=== PATIENT | female | born 1975 | race African-American/Black ===

== ENCOUNTER 2017-03-30 10:47 | Emergency (ER) | payer OTHER ==
[2017-03-30 11:03] VITALS: BP 156/105; PULSE 81; RESP 16; TEMP 98.1; O2SAT 97
[2017-03-30] MEDS ORDERED: DEXAMETHASONE 4 MG TAB PO ONE (12:43)
[2017-03-30] MEDS ORDERED: AZITHROMYCIN 250 MG TAB PO ONE (12:43)
--- NOTE | 2017-03-30 12:46 | EDPHY ---
H & P Stated Complaint: URI/flu sxs and ST x 2days;exposed to illness at work Time Seen by Provider: 03/30/17 12:37 HPI/ROS: CHIEF COMPLAINT: Sore throat HISTORY OF PRESENT ILLNESS: The patient is a 41-year-old healthy female who comes to the emergency department complaining of a sore throat x3 days as well as body aches, sinus congestion. No cough. No shortness of breath. No chest pain she did have a flu vaccination this year. She states that she has missed last 3 days of work and needs a note. REVIEW OF SYSTEMS: Constitutional: denies: chills, fever, recent illness, recent injury EENTM: See HPI Respiratory: denies: cough, shortness of breath Cardiac: denies: chest pain, irregular heart rate, lightheadedness, palpitations Gastrointestinal/Abdominal: denies: abdominal pain, diarrhea, nausea, vomiting, blood streaked stools Genitourinary: denies: dysuria, frequency, hematuria, pain Musculoskeletal: denies: joint pain, muscle pain Skin: denies: lesions, rash, jaundice, bruising Neurological: denies: headache, numbness, paresthesia, tingling, dizziness, weakness Hematologic/Lymphatic: denies: blood clots, easy bleeding, easy bruising Immunologic/allergic: denies: HIV/AIDS, transplant EXAM: GENERAL: Well-appearing, well-nourished and in no acute distress. HEAD: Atraumatic, normocephalic. EYES: Pupils equal round and reactive to light, extraocular movements intact, sclera anicteric, conjunctiva are normal. ENT: TMs normal, oropharynx erythematous with white exudate, anterior cervical lymphadenopathy, sinus congestion . Moist mucous membranes. NECK: Normal range of motion, supple without lymphadenopathy or JVD. LUNGS: Breath sounds clear to auscultation bilaterally and equal. No wheezes rales or rhonchi. HEART: Regular rate and rhythm without murmurs, rubs or gallops. ABDOMEN: Soft, nontender, normoactive bowel sounds. No guarding, no rebound. No masses appreciated. BACK: No CVA tenderness, no spinal tenderness, step-offs or deformities EXTREMITIES: Normal range of motion, no pitting or edema. No clubbing or cyanosis. NEUROLOGICAL: Cranial nerves II through XII grossly intact. Normal speech, normal gait. 5/5 strength, normal movement in all extremities, normal sensation PSYCH: Normal mood, normal affect. SKIN: Warm, dry, normal turgor, no visible rashes or lesions. Source: Patient Exam Limitations: No limitations - Personal History Current Tetanus Diphtheria and Acellular Pertussis (TDAP): Yes - Medical/Surgical History Hx Asthma: No Hx Chronic Respiratory Disease: No Hx Diabetes: No Hx Cardiac Disease: No Hx Renal Disease: No Hx Cirrhosis: No Hx Alcoholism: No Hx HIV/AIDS: No Other PMH: tubal ligation - Family History Significant Family History: No pertinent family hx - Social History Smoking Status: Current every day smoker Alcohol Use: Sober Drug Use: None Constitutional: Initial Vital Signs Temperature (C) 36.7 C 03/30/17 10:50 Heart Rate 81 03/30/17 10:50 Respiratory Rate 16 03/30/17 10:50 Blood Pressure 156/105 H 03/30/17 10:50 O2 Sat (%) 97 03/30/17 10:50 O2 Delivery Mode Room Air Allergies/Adverse Reactions: No Known Allergies Allergy (Unverified 03/30/17 10:59) Home Medications: Medication Instructions Recorded Azithromycin [Zithromax] 250 mg PO DAILY #6 tab 03/30/17 Medical Decision Making ED Course/Re-evaluation: I will treat the patient with azithromycin and a dose of Decadron for pain. She will follow up with her regular physician. I stressed hydration and rest. She is happy with this plan and declines further workup or testing. Differential Diagnosis: Partial list of the Differential diagnosis considered include but were not limited to; pharyngitis, strep throat , sinusitis and although unlikely based on the history and physical exam, I also considered influenza, pneumonia, meningitis. I discussed these differential diagnoses and the plan with the patient as well as the usual and expected course. The patient understands that the diagnosis is provisional and that in medicine we are not always correct and that further workup is often warranted. Usual and customary warnings were given. All of the patient's questions were answered. The patient was instructed to return to the emergency department should the symptoms at all worsen or return, otherwise to followup with the physician as we discussed. - Data Points Medications Given: Discontinued Medications Azithromycin (Zithromax) 500 mg PO EDNOW ONE PRN Reason: Protocol Stop: 03/30/17 12:44 Last Admin: 03/30/17 13:00 Dose: 500 mg Dexamethasone (Decadron) 10 mg PO EDNOW ONE Stop: 03/30/17 12:44 Last Admin: 03/30/17 13:00 Dose: 10 mg Departure - Departure Disposition: Home, Routine, Self-Care Clinical Impression: Acute pharyngitis Qualifiers: Pharyngitis/tonsillitis etiology: unspecified etiology Qualified Code(s): J02.9 - Acute pharyngitis, unspecified Condition: Fair Instructions: Pharyngitis (ED) Referrals: NONE *PRIMARY CARE P,. [Primary Care Provider] - As per Instructions Antonio Woods MD [Medical Doctor] - As per Instructions Stand Alone Forms: Work Excuse Prescriptions: Azithromycin [Zithromax] 250 mg PO DAILY #6 tab
== END 2017-03-30 13:03 | disposition home or self-care (01) ==
DX: J02.9 Acute pharyngitis, unspecified (principal); F17.200 Nicotine dependence, unspecified, uncomplicated

== ENCOUNTER 2017-05-05 15:36 | Emergency (ER) | payer OTHER ==
[2017-05-05 15:51] VITALS: RESP 16; TEMP 98.4
--- NOTE | 2017-05-05 16:38 | EDPHY ---
General Narrative: CHIEF COMPLAINT: Right ear pain, yeast infection HISTORY OF PRESENT ILLNESS: Patient complains of right ear pain times several days. It is very painful to her. Worse with palpation and movement. Difficult for here the right ear because it. Associated with sore throat and nasal congestion. Some runny nose. No chest pain. No cough but no shortness of breath. No fever. No neck pain or stiffness. No headache. No body aches. Secondary complaint is that of yeast infection. She has symptoms consistent with previous yeast infections and possibly bacterial vaginosis. This involves vaginal pruritus and mild, white discharge. No pelvic pain no abdominal pain. No flank pain. No fever. No nausea or vomiting. She is asking for empiric coverage of these without any are testing. No other associated complaints or modifying factors. REVIEW OF SYSTEMS: Ten systems reviewed and are negative unless otherwise noted in the HPI PCP: None SPECIALISTS: None PAST MEDICAL HISTORY: None PAST SURGICAL HISTORY: Tubal ligation SOCIAL HISTORY: Daily smoker. No alcohol or drug use. FAMILY HISTORY: Noncontributory EXAMINATION General Appearance: Alert, no distress Head: normocephalic, atraumatic Eyes: Pupils equal and round, no conjunctival pallor or injection ENT, Mouth: Right ear cerumen impaction. Left ear is clear. Unable to visualize the right TM. No erythema of the mastoid per Mucous membranes moist. Airway is patent. There is no erythema. There is postnasal drip. Neck: Normal inspection, supple, non-tender midline trachea Respiratory: Lungs are clear to auscultation. No wheezing, rhonchi or crackles. Cardiovascular: Regular rate and rhythm. No murmur Gastrointestinal: Abdomen is soft and nondistended. Skin: Warm and dry, no rash. No petechiae or purpura. No cellulitis of the face or right mastoid Extremities: Nontender, no pedal edema. Symmetric range of motion Psychiatric: Mood and affect normal DIFFERENTIAL DIAGNOSES: Including but not limited to yeast infection, bacterial vaginosis, sexually transmitted infection, cerumen impaction, otitis externa, otitis media MDM: 4:25 p.m. Right ear cerumen impaction and symptoms consistent with bacterial vaginosis versus yeast infection. She has declined a pelvic examination. Unable to visualize the right TM so I attempted a cerumen impaction removal. She is not tolerating this. I will proceed with irrigation of the right EAC with deep rocks and re-evaluate. Attempting to obtain a crocodile forceps to re-attempt cerumen impaction. 4:50 p.m. Successful removal of cerumen impaction with crocodile forceps. After this I was able to visualize the TM. The TM is unremarkable but there is a moderate otitis externa. No perforated TM. Should be treated with ear drops for this. No indication for oral medication for this. She also be treated with Diflucan and Flagyl at her request with symptoms bacterial vaginosis yeast infection. She is declining pelvic exam. She has instructions to follow up with ENT and her primary care physician. I did send urinalysis samples for GC and Chlamydia. She will be contacted by charge nurse she these returned positive. Recommend smoking cessation as well. ED precautions discussed. She is comfortable this plan and discharged in stable condition. - History Smoking Status: Current every day smoker - Objective Vital Signs: Initial Vital Signs Temperature (C) 98.4 F 05/05/17 15:47 Heart Rate 76 05/05/17 15:47 Respiratory Rate 16 05/05/17 15:47 Blood Pressure 150/80 H 05/05/17 15:47 O2 Sat (%) 98 05/05/17 15:47 O2 Delivery Mode Room Air Allergies/Adverse Reactions: No Known Allergies Allergy (Unverified 03/30/17 10:59) Home Medications: Medication Instructions Recorded Acetaminophen/Codeine 300/30Mg 1 each PO Q6 PRN #7 tab 05/05/17 [Tylenol #3 (*)] Ciprofloxacin HCl/Dexameth 4 drop OT BID #1 btl 05/05/17 [Ciprodex Otic Suspension] Fluconazole [Diflucan (*)] 150 mg PO ONCE #2 tab 05/05/17 metroNIDAZOLE [Flagyl 500 mg (*)] 500 mg PO BID #20 tab 05/05/17 Departure - Departure Disposition: Home, Routine, Self-Care Clinical Impression: Right ear impacted cerumen, Bacterial vaginosis Otalgia Qualifiers: Laterality: right Qualified Code(s): H92.01 - Otalgia, right ear Otitis externa Qualifiers: Otitis externa type: unspecified type Chronicity: acute Laterality: right Qualified Code(s): H60.501 - Unspecified acute noninfective otitis externa, right ear Condition: Good Instructions: Bacterial Vaginosis (ED), Cerumen Impaction (ED), Earache (ED), Otitis Externa (ED) Additional Instructions: 1. Medications as prescribed to completion 2. follow up with ENT physician as discussed 3. Contact and Follow up with on-call primary care physician. Information provided 4. ED precautions as discussed Referrals: NONE *PRIMARY CARE P,. [Primary Care Provider] - As per Instructions Demond Centeno DO [Medical Doctor] - As per Instructions Love Courtney MD [Medical Doctor] - As per Instructions Prescriptions: Acetaminophen/Codeine 300/30Mg [Tylenol #3 (*)] 1 each PO Q6 PRN #7 tab PRN Reason: Pain, Mild Ciprofloxacin HCl/Dexameth [Ciprodex Otic Suspension] 4 drop OT BID #1 btl Fluconazole [Diflucan (*)] 150 mg PO ONCE #2 tab metroNIDAZOLE [Flagyl 500 mg (*)] 500 mg PO BID #20 tab
[2017-05-05] MEDS ORDERED: HYDROCODONE/APAP 5/325 TAB PO ONE (16:49)
[2017-05-05 17:11] VITALS: BP 134/74; PULSE 72; O2SAT 96
[2017-05-06 12:10] LABS: CHLAMYDIA AMPLIFICATION GENPRB NEGATIVE (NEGATIVE)
== END 2017-05-05 17:11 | disposition home or self-care (01) ==
PROC: F09Z3XZ Cerumen Management Treatment using Cerumen Management Equipment (ICD-10-PCS; principal; 2017-05-05)
DX: H61.21 Impacted cerumen, right ear (principal); N76.0 Acute vaginitis; H60.501 Unspecified acute noninfective otitis externa, right ear; F17.200 Nicotine dependence, unspecified, uncomplicated

== ENCOUNTER 2017-05-24 15:51 | Emergency (ER) | payer OTHER ==
[2017-05-24 16:13] VITALS: BP 136/108; PULSE 80; RESP 16; TEMP 98.6; O2SAT 95
--- NOTE | 2017-05-24 16:49 | EDPHY ---
H & P Time Seen by Provider: 05/24/17 16:44 HPI/ROS: CHIEF COMPLAINT: [ ] HISTORY OF PRESENT ILLNESS: [Need 4: Location, Duration, Severity, Quality, Context, Timing Modifying Factors, Associated S&S] REVIEW OF SYSTEMS: A comprehensive 10 point review of systems is otherwise negative aside from elements mentioned in the history of present illness. Source: Patient Exam Limitations: No limitations - Personal History LMP (Females 10-55): 15-21 Days Ago Current Tetanus/Diphtheria Vaccine: Yes - Medical/Surgical History Hx Asthma: No Hx Chronic Respiratory Disease: No Hx Diabetes: No Hx Cardiac Disease: No Hx Renal Disease: No Hx Cirrhosis: No Hx Alcoholism: No Hx HIV/AIDS: No Other PMH: tubal ligation - Social History Smoking Status: Former smoker - Physical Exam Exam: General Appearance: [Alert, no distress] Eyes: [Pupils equal and round no pallor or injection] ENT, Mouth: [Mucous membranes moist] Respiratory: [There are no retractions, lungs are clear to auscultation] Cardiovascular: [Regular rate and rhythm] Gastrointestinal: [Abdomen is soft and nontender, no masses, bowel sounds normal] Neurological: [A&O, normal motor function, normal sensory exam, normal cranial nerves] Skin: [Warm and dry, no rashes] Musculoskeletal: [Neck is supple nontender] Extremities: [symmetrical, full range of motion] Psychiatric: [Patient is oriented X 3, there is no agitation] Constitutional: Initial Vital Signs Temperature (C) 37 C 05/24/17 16:09 Heart Rate 80 05/24/17 16:09 Respiratory Rate 16 05/24/17 16:09 Blood Pressure 136/108 H 05/24/17 16:09 O2 Sat (%) 95 05/24/17 16:09 O2 Delivery Mode Room Air Allergies/Adverse Reactions: No Known Allergies Allergy (Verified 05/24/17 16:08) Home Medications: Medication Instructions Recorded NK [No Known Home Meds] 05/24/17 Departure - Departure Referrals: NONE *PRIMARY CARE P,. [Primary Care Provider] - As per Instructions
--- NOTE | 2017-05-24 16:55 | EDPHY ---
HPI/HX/ROS/PE/MDM Narrative: CHIEF COMPLAINT: Yeast infection HPI: The patient is a 42 y/o female complaining of a vaginal yeast infection for the last few days. She has a history of prior yeast infections and bacterial vaginosis and was last seen here in April for the same symptoms. She was prescribed Flagyl and Diflucan, which resolved the infection. She complains of the exact same symptoms today including vaginal pruritus and burning sensation. She is requesting medication treatment only and declines a pelvic exam. She denies dysuria, fever, chills. REVIEW OF SYSTEMS: Aside from elements discussed in the HPI, a comprehensive 10-point review of systems was reviewed and is negative. PMH: Tubal ligation, vaginitis SOCIAL HISTORY: Employed. Smoker. Lives in [place]. PHYSICAL EXAM: General:Patient is alert, in no acute distress. ENT:Eyes are normal to inspection. ENT inspection normal. Neck: Normal inspection. Full range of motion. Respiratory:No respiratory distress. Breath sounds normal bilaterally. Cardiovascular: Regular rate and rhythm. Strong peripheral pulses. Normal cap refill. Abdomen:The abdomen is nontender to palpation. There are no peritoneal signs. Back: Normal to inspection. No tenderness to palpation. Skin: Normal color. No rash. Warm and dry. Extremities: Normal appearance. Full range of motion. Neuro: Oriented x3. Normal motor function. Normal sensory function. ED Course: This is a 42 y/o female who presents with symptoms consistent with vaginitis that she reports feel exactly the same as prior bacterial vaginosis and vaginal yeast infection. She is declining pelvic exam or further work up for this and is requesting medication only. I have prescribed Diflucan and Flagyl for her as these worked well in the past. I recommended following up with her OBGYN for unimproved or recurrent symptoms. Return precautions discussed. She is comfortable with this plan. General Time Seen by Provider: 05/24/17 16:44 Initial Vital Signs: Initial Vital Signs Temperature (C) 37 C 05/24/17 16:09 Heart Rate 80 05/24/17 16:09 Respiratory Rate 16 05/24/17 16:09 Blood Pressure 136/108 H 05/24/17 16:09 O2 Sat (%) 95 05/24/17 16:09 O2 Delivery Mode Room Air Allergies/Adverse Reactions: No Known Allergies Allergy (Verified 05/24/17 16:08) Home Medications: Medication Instructions Recorded Fluconazole [Diflucan (*)] 150 mg PO ONCE #1 tab 05/24/17 metroNIDAZOLE [Flagyl] 500 mg PO BID #14 tab 05/24/17 Departure - Departure Disposition: Home, Routine, Self-Care Clinical Impression: Vaginitis Qualifiers: Chronicity: chronic Qualified Code(s): N76.1 - Subacute and chronic vaginitis Condition: Good Instructions: Metronidazole (By mouth), Fluconazole (By mouth), Vaginitis (ED) Additional Instructions: 1. Take Diflucan and Flagyl as directed. Be sure to complete the entire prescription of each. 2. I recommend following up with an OBGYN for a full pelvic exam. You've been referred to Dr. Coffman for follow up. Referrals: Josey Coffman DO [Doctor of Osteopathy] - As per Instructions Prescriptions: Fluconazole [Diflucan (*)] 150 mg PO ONCE #1 tab metroNIDAZOLE [Flagyl] 500 mg PO BID #14 tab Report Scribed for: Cornell Mustafa Report Scribed by: Mague Berrios Date of Report: 05/24/17 Time of Report: 16:56 Physician Review and Approval Statement: Portions of this note were transcribed by an ED scribe. I personally performed the history, physical exam, and medical decision making; and confirm the accuracy of the information in the transcribed note.
== END 2017-05-24 17:04 | disposition home or self-care (01) ==
DX: N76.1 Subacute and chronic vaginitis (principal); F17.200 Nicotine dependence, unspecified, uncomplicated

== ENCOUNTER 2017-08-20 17:59 | Emergency (ER) | payer OTHER ==
--- NOTE | 2017-08-20 18:19 | EDPHY ---
H & P Source: Patient Exam Limitations: No limitations - Personal History LMP (Females 10-55): 8-14 Days Ago - Medical/Surgical History Hx Asthma: No Hx Chronic Respiratory Disease: No Hx Diabetes: No Hx Cardiac Disease: No Hx Renal Disease: No Hx Cirrhosis: No Hx Alcoholism: No Hx HIV/AIDS: No Other PMH: tubal ligation - Social History Smoking Status: Former smoker Time Seen by Provider: 08/20/17 18:18 HPI/ROS: HPI: This is a 42-year-old female who presents with Chief Complaint: Vaginal discharge Location: pelvic Quality: Discharge Duration: Weeks Signs and Symptoms: no fever, no nausea, no vomiting, no hematemesis, no blood in stool, no abdominal bloating, no diarrhea, no back pain, no urinary symptoms , no vaginal bleeding, no indigestion, no chest pain, no shortness of breath, no dyspareunia Timing: Daily Severity: [id number] Context: Patient has a history of bilateral tubal ligation, LMP 1-2 weeks ago, presents with complaints of brownish vaginal discharge that occurs daily for the last several weeks. Her last pelvic exam was approximately 1 year ago. She reports that she has a history of candidiasis and bacterial vaginosis but believes that this discharge is different from previous times. After further questioning she is requesting STD workup. Denies abdominal pain/back pain/ vaginal bleeding/pelvic pain/nausea/vomiting. Eating and drinking normally. Modifying Factors: None Comment: ROS: see HPI Constitutional: No fever, no chills, no weight loss Eyes: No blurred vision Respiratory: No shortness of breath, no cough Cardiovascular: No chest pain, no palpitations Gastrointestinal: No nausea, no vomiting, no diarrhea, no hematemesis, no blood in stool Genitourinary: No dysuria, no blood in urine Extremities: No myalgias, no edema Neurologic: No weakness, no numbness Skin: No rashes, no petechiae Hematologic: No bruising, no bleeding MEDICAL/SURGICAL/SOCIAL HISTORY: Medical history: Generally healthy. Does not take any regular medications. Surgical history: Bilateral tubal ligation Social history: Employed. CONSTITUTIONAL: awake and alert, no obvious distress HEENT: Atraumatic and normocephalic, PERRL, EOMI. Tympanic membranes clear. Oropharynx clear, no exudate and moist pink mucosa. Airway patent. No lymphadenopathy. No meningismus. Cardiovascular: Normal S1/S2, regular rate, regular rhythm, without murmur rub or gallop. PULMONARY/CHEST: Symmetrical and nontender. Clear to auscultation bilaterally. Good air movement. No accessory muscle usage. ABDOMEN: Soft, nondistended, nontender, no rebound, no guarding, no peritoneal signs, no masses or organomegaly. No CVAT. PELVIC: normal external genitalia, normal cervix, cervical os was closed, no cervical motion tenderness, no adnexal mass, white thick discharge, no bleeding. The exam was performed with a biomedical engineering professor. EXTREMITIES: 2/2 pulses, strength 5/5, no deformities, no clubbing, no cyanosis or edema. NEUROLOGICAL: no focal neuro deficits. GCS 15. SKIN: Warm and dry, no erythema. no rash. Good capillary refill. (Ritu Garvey) Constitutional: Initial Vital Signs Temperature (C) 36.7 C 08/20/17 18:18 Heart Rate 82 08/20/17 18:18 Respiratory Rate 18 08/20/17 18:18 Blood Pressure 150/101 H 08/20/17 18:18 O2 Sat (%) 97 08/20/17 18:18 O2 Delivery Mode Room Air Allergies/Adverse Reactions: codeine Allergy (Verified 08/20/17 18:18) Home Medications: Medication Instructions Recorded Fluconazole [Diflucan (*)] 150 mg PO ONCE #1 tab 05/24/17 metroNIDAZOLE [Flagyl] 500 mg PO BID #14 tab 05/24/17 metroNIDAZOLE [Metrogel-Vaginal] 70 gm VG HS 5 Days gel.w.appl 08/20/17 Medical Decision Making ED Course/Re-evaluation: The patient was evaluated and managed by the physician visual merchandising assistant. I have reviewed this chart and I agree with the findings and plan of care as documented , as indicated by my signature. I am the secondary supervising physician. ( Dacia Fitzpatrick) Urinalysis, urine , pelvic swabs ordered No signs of pelvic inflammatory disease/sepsis/UTI Given Rocephin and Zithromax for GC as send out clue cells positive: Metrogel vaginal Rx given This patient was seen under the supervision of my secondary supervising physician. I evaluated care for this patient independently. (Ritu Garvey) Differential Diagnosis: Differential diagnosis includes but is not limited to bacterial vaginosis, pelvic inflammatory disease, urinary tract infection, gonorrhea, chlamydia, Trichomonas. (Ritu Garvey) - Data Points Laboratory Results: 08/20/17 08/20/17 08/20/17 19:55 19:32 19:32 Urine Color Urine Appearance Urine pH Ur Specific Dexter Urine Protein Urine Ketones Urine Blood Urine Nitrate Urine Bilirubin Urine Urobilinogen Ur Leukocyte Esterase Urine Glucose Urine Test NEGATIVE Trichomonas (Wet Prep) 3+ EPITHELIAL CELLS Suzan species DNA Pending C.trachomatis RNA (TMA) Pending Gardnerella DNA Probe Pending N.gonorrhoeae RNA (TMA) Pending Trichomonas DNA Probe Pending 08/20/17 19:32 Urine Color YELLOW Urine Appearance CLEAR Urine pH 6.0 (5.0-7.5) Ur Specific Dexter 1.025 (1.002-1.030) Urine Protein NEGATIVE (NEGATIVE) Urine Ketones NEGATIVE (NEGATIVE) Urine Blood NEGATIVE (NEGATIVE) Urine Nitrate NEGATIVE (NEGATIVE) Urine Bilirubin NEGATIVE (NEGATIVE) Urine Urobilinogen NEGATIVE EU EU (0.2-1.0) Ur Leukocyte Esterase NEGATIVE (NEGATIVE) Urine Glucose NEGATIVE (NEGATIVE) Urine Test Trichomonas (Wet Prep) Suzan species DNA C.trachomatis RNA (TMA) Gardnerella DNA Probe N.gonorrhoeae RNA (TMA) Trichomonas DNA Probe Medications Given: Discontinued Medications Azithromycin (Zithromax) 1,000 mg PO EDNOW ONE PRN Reason: Protocol Stop: 08/20/17 19:56 Last Admin: 08/20/17 20:19 Dose: 1,000 mg Ceftriaxone Sodium (Rocephin Im Syringe) 250 mg IM EDNOW ONE PRN Reason: Protocol Stop: 08/20/17 19:59 Last Admin: 08/20/17 20:34 Dose: 250 mg Departure - Departure Disposition: Home, Routine, Self-Care Clinical Impression: Vaginal discharge, Candidiasis of vagina, Bacterial vaginosis Condition: Good Instructions: Vaginal Discharge (ED) Additional Instructions: Please make an appointment to see your OBGYN within the next 1-3 months. Once all your results have been obtained, you will be contacted by the ER if any of them are positive. You do not have a urinary tract infection. Please practice safe sex. Referrals: [facility],. [Clinic] - As per Instructions Prescriptions: metroNIDAZOLE [Metrogel-Vaginal] 70 gm VG HS 5 Days gel.w.appl
[2017-08-20] MEDS ORDERED: AZITHROMYCIN 250 MG TAB PO ONE (19:55)
[2017-08-20 20:55] VITALS: BP 152/101; PULSE 75; RESP 15; TEMP 98.2; O2SAT 95
[2017-08-22 15:05] LABS: GC AMPLIFICATION GENPROBE NEGATIVE (NEGATIVE)
== END 2017-08-20 20:55 | disposition home or self-care (01) ==
DX: N76.0 Acute vaginitis (principal); B37.3 Candidiasis of vulva and vagina; B96.89 Other specified bacterial agents as the cause of diseases classified elsewhere; Z87.891 Personal history of nicotine dependence
CPT/HCPCS: J0696

== ENCOUNTER 2017-09-20 19:10 | Emergency (ER) | payer SELFPAY ==
[2017-09-20 19:33] VITALS: RESP 16
--- NOTE | 2017-09-20 20:26 | EDPHY ---
H & P Time Seen by Provider: 09/20/17 20:08 HPI/ROS: CHIEF COMPLAINT: Left ankle injury HISTORY OF PRESENT ILLNESS: 42-year-old female presents to the emergency department with left ankle injury. The patient was at home yesterday and twisted her left ankle. She complains of isolated pain to the left ankle. She was initially able to bear weight and then especially last evening and this morning she was having difficulty bearing weight because of the pain and swelling. She denies any other injury or trauma. ROS: Denies numbness or tingling in her toes, pain in her left leg or left knee. Denies symptoms in the right lower extremity. Past Medical/Surgical History: Tubal ligation Social History: Smoking Status: Former smoker Physical Exam: On examination the patient has some swelling noted to the lateral aspect of the left ankle overlying lateral malleolus. Nontender to palpate over the medial malleolus. Patient has pain with palpation especially over the lateral aspect of the left ankle. There is no obvious ligament instability. Nontender to palpate in her left foot. There is no abrasions, ecchymosis. Limited dorsiflexion secondary to pain. Achilles tendon is intact. Her left calf is nontender. Left knee is nontender. Her gait is not tested due to pain. Constitutional: Initial Vital Signs Temperature (C) 37.2 C 09/20/17 19:31 Heart Rate 85 09/20/17 19:31 Respiratory Rate 16 09/20/17 19:31 Blood Pressure 135/87 H 09/20/17 19:31 O2 Sat (%) 95 09/20/17 19:31 O2 Delivery Mode Room Air Allergies/Adverse Reactions: codeine Allergy (Verified 08/20/17 18:18) Home Medications: Medication Instructions Recorded Fluconazole [Diflucan (*)] 150 mg PO ONCE #1 tab 05/24/17 metroNIDAZOLE [Flagyl] 500 mg PO BID #14 tab 05/24/17 metroNIDAZOLE [Metrogel-Vaginal] 70 gm VG HS 5 Days gel.w.appl 08/20/17 MDM/Departure - MDM Imaging Results: Imaging Impressions Ankle X-Ray 09/20/17 19:49 Impression: Moderate soft tissue swelling at the lateral malleolus without evidence of fracture. Imaging: I viewed and interpreted images myself Procedures: Patient was placed in a Clark boot and examined post application in good placement with normal V[employer]ERIN[employer] EPIDEMIOLOGIST. Medications Given: Discontinued Medications Ibuprofen (Motrin) 800 mg PO EDNOW ONE Stop: 09/20/17 20:37 Last Admin: 09/20/17 20:43 Dose: 800 mg ED Course/Re-evaluation: 42-year-old female presents emergency room left ankle injury. X-rays reveal fractures. She was placed in a Clark boot and given orthopedic referral. - Depart Disposition: Home, Routine, Self-Care Clinical Impression: Left ankle sprain Qualifiers: Encounter type: initial encounter Involved ligament of ankle: unspecified ligament Qualified Code(s): S93.402A - Sprain of unspecified ligament of left ankle, initial encounter Condition: Good Instructions: Ankle Sprain (ED) Additional Instructions: Clark boot for comfort and support. Weightbear as tolerated. Follow up with orthopedic surgeon in 1 week to recheck. Stand Alone Forms: Work Excuse Referrals: Byron Kahn MD [Medical Doctor] - 2-3 days, call for appt. (Orthopedic surgeon on-call)
[2017-09-20] MEDS ORDERED: IBUPROFEN 600 MG TAB PO ONE (20:35)
[2017-09-20] MEDS ORDERED: IBUPROFEN 800 MG TAB PO ONE ×2 (20:35→20:36)
[2017-09-20 21:06] VITALS: BP 131/87; PULSE 74; TEMP 98.4; O2SAT 97
== END 2017-09-20 21:06 | disposition home or self-care (01) ==
DX: S93.402A Sprain of unspecified ligament of left ankle, initial encounter (principal); Z87.891 Personal history of nicotine dependence; X58.XXXA Exposure to other specified factors, initial encounter; Y92.009 Unspecified place in unspecified non-institutional (private) residence as the place of occurrence of the external cause

== ENCOUNTER 2018-06-02 05:54 | Emergency (ER) | payer MEDICAID ==
--- NOTE | 2018-06-02 06:25 | EDPHY ---
H & P Stated Complaint: PAINFUL YEAST INFX UNDER GABRIELA BREAST X 2 WKS Time Seen by Provider: 06/02/18 06:25 HPI/ROS: HPI CHIEF COMPLAINT: [ ] HISTORY OF PRESENT ILLNESS: [Need 4: Location, Duration, Severity, Quality, Context, Timing Modifying Factors, Associated S&S] Past Medical History: Past Surgical History: Social History: Family History: ROS REVIEW OF SYSTEMS: 10 Systems were reviewed and negative with the exception of the elements mentioned in the history of present illness. Exam Constitutional triage nursing summary reviewed, vital signs reviewed, awake/ alert. Eyes normal conjunctivae and sclera, EOMI, PERRLA. HENT normal inspection, atraumatic, moist mucus membranes, no epistaxis, neck supple/ no meningismus, no raccoon eyes. Respiratory clear to auscultation bilaterally, normal breath sounds, no respiratory distress, no wheezing. Cardiovascular rate normal, regular rhythm, no murmur, no edema, distal pulses normal. Gastrointestinal soft, non-tender, no rebound, no guarding, normal bowel sounds, no distension, no pulsatile mass. Genitourinary no CVA tenderness. Musculoskeletal no midline vertebral tenderness, full range of motion, no calf swelling, no tenderness of extremities, no meningismus, good pulses, neurovascularly intact. Skin pink, warm, & dry, no rash, skin atraumatic. Neurologic awake, alert and oriented x 3, AAOx3, moves all 4 extremities equally, motor intact, sensory intact, CN II-XII intact, normal cerebellar, normal vision, normal speech. Psychiatric normal mood/affect. Heme/Lymph/Immune no lymphadenopathy. Differential Diagnosis: Medical Decision Making: Re-evaluation: Source: Patient - Personal History Current Tetanus Diphtheria and Acellular Pertussis (TDAP): Yes - Medical/Surgical History Hx Asthma: No Hx Chronic Respiratory Disease: No Hx Diabetes: No Hx Cardiac Disease: No Hx Renal Disease: No Hx Cirrhosis: No Hx Alcoholism: No Hx HIV/AIDS: No Hx Splenectomy or Spleen Trauma: No Other PMH: tubal ligation - Social History Smoking Status: Light smoker Constitutional: Initial Vital Signs Temperature (C) 37.0 C 06/02/18 06:12 Heart Rate 75 06/02/18 06:12 Respiratory Rate 16 06/02/18 06:12 Blood Pressure 161/90 H 06/02/18 06:12 O2 Sat (%) 98 06/02/18 06:12 O2 Delivery Mode Room Air Allergies/Adverse Reactions: codeine Allergy (Verified 08/20/17 18:18) Home Medications: Medication Instructions Recorded NK [No Known Home Meds] 06/02/18 Departure - Departure Referrals: NONE *PRIMARY CARE P,. [Primary Care Provider] - As per Instructions
[2018-06-02] MEDS ORDERED: FLUCONAZOLE 150 MG TAB ONE (08:29)
[2018-06-02] MEDS ORDERED: FLUCONAZOLE 150 MG TAB PO ONE (08:54)
--- NOTE | 2018-06-02 08:54 | EDPHY ---
H & P Time Seen by Provider: 06/02/18 06:25 HPI/ROS: HPI Yeast infection. 43-year-old female by private vehicle. This patient reports that she has had 1 week of vaginal irritation and a whitish discharge, consistent with her prior yeast infections. She is here for medication to treat this. She does have 1 sexual partner currently. She reports she has had more irritation after sexual intercourse. She has not had a fever. No back pain. Denies any vaginal bleeding. ROS: Constitutional: No fever, no chills. No weakness. Gastrointestinal: No abdominal pain, no vomiting, no diarrhea. Genitourinary: No hematuria. As above, no frequency with urination. As above. Musculoskeletal: No back pain. No neck pain. No myalgias or arthralgias. Skin: No rashes. Neurological: No headache. Past medical history: Tubal ligation. Social history: Nonsmoker. Here by herself. As above. No alcohol. Physical Exam: General Appearance: Alert, no distress. This patient is responding to questions appropriately and in full sentences. This patient appears well- hydrated and well-nourished. Eyes: Pupils equal and round no pallor or injection. No lid edema, erythema or injection. Respiratory: There are no retractions, lungs are clear to auscultation with good air movement bilaterally. Cardiovascular: Regular rate and rhythm. No murmur. Gastrointestinal: Abdomen is soft and nontender, no masses, bowel sounds normal. No focal tenderness at McBurney's point. No Milligan sign. Neurological: Motor sensory function is grossly intact. Cranial nerves are normal. Gait is normal. Skin: Warm and dry, no rashes. Musculoskeletal: Neck is supple and nontender. Extremities are symmetrical. All joints range without pain or impingement. Psychiatric: No agitation. No depression. Database: EKG: Imaging: Procedures: Emergency department course: Triage vital signs reviewed. She is moderately hypertensive. Vital signs are otherwise normal. She is afebrile. Urinalysis unremarkable. Urine negative. Patient's presentation is consistent with a yeast infection. She was given 150 mg of oral fluconazole. Plan will be to prescribe her another 2 doses to be taken 72 hr apart. Patient given a prescription for this medication. GC and chlamydia also ordered. Results should be back tomorrow. [facility] and will call in for these results tomorrow. She has been instructed to return if she has positive results for additional antibiotics. She understands her instructions. Return to emergency department precautions reviewed. All of her questions were answered. She was discharged in good condition. Differential Diagnosis: The differential diagnosis on this patient includes but is not limited to yeast infection. Urinary tract infection, STI unlikely. This represents a partial list of diagnoses considered. These considerations are based on history, physical exam, past history, reassessment and diagnostic testing. Smoking Status: Light smoker Constitutional: Initial Vital Signs Temperature (C) 37.0 C 06/02/18 06:12 Heart Rate 75 06/02/18 06:12 Respiratory Rate 16 06/02/18 06:12 Blood Pressure 161/90 H 06/02/18 06:12 O2 Sat (%) 98 06/02/18 06:12 O2 Delivery Mode Room Air Allergies/Adverse Reactions: codeine Allergy (Verified 08/20/17 18:18) Home Medications: Medication Instructions Recorded Fluconazole 150 mg PO DAILY #2 tablet 06/02/18 Medical Decision Making - Data Points Laboratory Results: 06/02/18 06/02/18 07:29 07:29 Urine Color YELLOW Urine Appearance CLEAR Urine pH 5.0 (5.0-7.5) Ur Specific [place] 1.027 (1.002-1.030) Urine Protein NEGATIVE (NEGATIVE) Urine Ketones NEGATIVE (NEGATIVE) Urine Blood NEGATIVE (NEGATIVE) Urine Nitrate NEGATIVE (NEGATIVE) Urine Bilirubin NEGATIVE (NEGATIVE) Urine Urobilinogen NEGATIVE EU EU (0.2-1.0) Ur Leukocyte Esterase NEGATIVE (NEGATIVE) Urine RBC 1-3 /hpf /hpf (0-3) Urine WBC 1-3 /hpf /hpf (0-3) Ur Epithelial Cells TRACE /lpf /lpf (NONE-1+) Urine Bacteria TRACE /hpf H /hpf (NONE SEEN) Urine Mucus 1+ /lpf /lpf (NONE-1+) Urine Glucose NEGATIVE (NEGATIVE) Urine Test NEGATIVE Medications Given: Discontinued Medications Fluconazole (Diflucan) 150 mg PO EDNOW ONE Stop: 06/02/18 08:55 Last Admin: 06/02/18 08:57 Dose: 150 mg Departure - Departure Disposition: Home, Routine, Self-Care Clinical Impression: Yeast infection Condition: Good Instructions: Vaginitis (ED), Yeast Infection (ED) Additional Instructions: Read and follow provided instructions. [facility] for re-evaluation. Call in for STI test results tomorrow as discussed. Return to the emergency department or see [facility] if there is a positive result. Take medication as prescribed. 2 more doses 72 hr apart. Return to the emergency department for worsening symptoms, fever, back pain, vomiting or other serious concerns. Referrals: NONE *PRIMARY CARE P,. [Primary Care Provider] - As per Instructions Prescriptions: Fluconazole 150 mg PO DAILY #2 tablet
[2018-06-02 09:15] VITALS: BP 112/85
[2018-06-05 12:41] LABS: GC AMPLIFICATION GENPROBE NEGATIVE (NEGATIVE)
== END 2018-06-02 09:14 | disposition home or self-care (01) ==
DX: B37.3 Candidiasis of vulva and vagina (principal)

== ENCOUNTER 2018-06-09 05:48 | Emergency (ER) | payer MEDICAID ==
[2018-06-09] MEDS ORDERED: metroNIDAZOLE 500 MG TAB PO ONE (06:05)
--- NOTE | 2018-06-09 06:06 | EDPHY ---
H & P Stated Complaint: vaginal infection abx not working Time Seen by Provider: 06/09/18 05:56 HPI/ROS: HPI The patient presents with ongoing vaginal discharge with itching for the last 1- 2 weeks. Patient was seen in the emergency department on June 02 for similar symptoms. She was treated with fluconazole for presumed vaginal yeast infection. She has taken several doses without any improvement in her symptoms. At that time she had testing for chlamydia and gonorrhea which was normal. She feels that she likely has bacterial vaginosis. She has had this before and says that her symptoms are identical. She is requesting a prescription for Flagyl. She does not have any abdominal or pelvic pain, fevers or vomiting. REVIEW OF SYSTEMS 10 systems were reviewed and negative with the exception of the elements mentioned in the history of present illness. PMHx: History of tubal ligation Soc Hx: New to the area, does not have a primary care doctor PHYSICAL General Appearance: Alert, no distress Respiratory: Breathing comfortably Neurological: A&O, moves all extremities Skin: Warm and dry, no rashes Psychiatric: Patient is oriented X 3, there is no agitation Source: Patient Exam Limitations: No limitations - Personal History LMP (Females 10-55): 22-28 Days Ago Current Tetanus/Diphtheria Vaccine: Yes Current Tetanus Diphtheria and Acellular Pertussis (TDAP): Yes - Medical/Surgical History Hx Asthma: No Hx Chronic Respiratory Disease: No Hx Diabetes: No Hx Cardiac Disease: No Hx Renal Disease: No Hx Cirrhosis: No Hx Alcoholism: No Hx HIV/AIDS: No Hx Splenectomy or Spleen Trauma: No Other PMH: tubal ligation, left foot surgery - Social History Smoking Status: Light smoker Constitutional: Initial Vital Signs Temperature (C) 37.0 C 06/09/18 05:50 Heart Rate 76 06/09/18 05:50 Respiratory Rate 16 06/09/18 05:50 Blood Pressure 142/86 H 06/09/18 05:50 O2 Sat (%) 97 06/09/18 05:50 O2 Delivery Mode Room Air Allergies/Adverse Reactions: codeine Allergy (Verified 06/09/18 05:53) Home Medications: Medication Instructions Recorded Fluconazole 150 mg PO DAILY #2 tablet 06/02/18 Metronidazole 500 mg PO BID 7 Days tablet 06/09/18 Medical Decision Making Differential Diagnosis: This is a 43-year-old female who presents from home with ongoing vaginal discharge in itching, on improved with fluconazole at home. She suspects bacterial vaginosis. She has negative gonorrhea and chlamydia testing from about 1 week ago. I will treat her presumptively for bacterial vaginosis. I have offered her a pelvic exam however she declines. I have given her follow- up information for [facility] as she does not have a primary care physician. - Data Points Medications Given: Discontinued Medications Metronidazole (Flagyl) 500 mg PO EDNOW ONE PRN Reason: Protocol Stop: 06/09/18 06:06 Last Admin: 06/09/18 06:08 Dose: 500 mg Departure - Departure Disposition: Home, Routine, Self-Care Clinical Impression: Bacterial vaginosis Condition: Good Instructions: Metronidazole (By mouth), Bacterial Vaginosis (ED) Additional Instructions: Please take the antibiotic as prescribed. You cannot drink alcohol when you are taking it. I have given you the information below for [facility] to establish a primary care doctor. Referrals: [facility],. [Clinic] - As per Instructions Prescriptions: Metronidazole 500 mg PO BID 7 Days tablet
[2018-06-09 06:26] VITALS: BP 134/78
== END 2018-06-09 06:26 | disposition home or self-care (01) ==
DX: N76.0 Acute vaginitis (principal); Z98.51 Tubal ligation status

== ENCOUNTER 2018-07-29 20:09 | Emergency (ER) | payer MEDICAID ==
--- NOTE | 2018-07-29 21:25 | EDPHY ---
H & P Stated Complaint: LOWER LEFT TOOTH ABSCESS Time Seen by Provider: 07/29/18 21:25 HPI/ROS: HPI CHIEF COMPLAINT: Left lower posterior dental pain. HISTORY OF PRESENT ILLNESS: 43-year-old female presents emergency room with left lower posterior molar dental pain. She has dental decay there. This tooth is given her problems in the past. She presents emergency room left lower posterior molar dental pain over the past 24-48 hours. Denies fever denies trouble swallowing. Has not seen a dentist. Past Medical History: Denies significant medical history Past Surgical History: Denies significant surgical history Social History: Does smoke tobacco. Denies illicit drugs or alcohol. Family History: Noncontributory ROS REVIEW OF SYSTEMS: 10 Systems were reviewed and negative with the exception of the elements mentioned in the history of present illness. Exam Constitutional triage nursing summary reviewed, vital signs reviewed, awake/ alert. Eyes normal conjunctivae and sclera, EOMI, PERRLA. HENT oropharynx: Left posterior gumline there is dental decay, eroded to the gumline. Mild tender palpation. No gumline abscess. No evidence of [employer] RPA no evidence of ANUG. moist mucus membranes, no epistaxis, neck supple/ no meningismus, no raccoon eyes. Respiratory clear to auscultation bilaterally, normal breath sounds, no respiratory distress, no wheezing. Cardiovascular rate normal, regular rhythm, no murmur, no edema, distal pulses normal. Gastrointestinal soft, non-tender, no rebound, no guarding, normal bowel sounds, no distension, no pulsatile mass. Genitourinary no CVA tenderness. Musculoskeletal no midline vertebral tenderness, full range of motion, no calf swelling, no tenderness of extremities, no meningismus, good pulses, neurovascularly intact. Skin pink, warm, & dry, no rash, skin atraumatic. Neurologic awake, alert and oriented x 3, AAOx3, moves all 4 extremities equally, motor intact, sensory intact, CN II-XII intact, normal cerebellar, normal vision, normal speech. Psychiatric normal mood/affect. Heme/Lymph/Immune no lymphadenopathy. Differential Diagnosis: Includes but is not limited to in a particular order dental decay, dental cavity, dental infection, apical abscess, pulpitis Medical Decision Making: Plan for this patient [place] for pain control here in emergency room. Augmentin. Recommend the patient follows up closely with dentistry. Additionally discussed return precautions with return emergency room if worsening pain, swelling, fever 2139: Plan for this patient prescription for Augmentin, as well as ibuprofen 800 mg. Do recommend she follows up closely with dentistry. Prescription provided for Augmentin and ibuprofen 800 mg. Have canceled her clindamycin prescription I think she would tolerate Augmentin better. PATIENT WAS GIVEN A PRESCRIPTION FOR AUGMENTIN WELL IBUPROFEN 800 MG. THE CLINDAMYCIN PRESCRIPTION WAS CANCELED I FEEL THAT SHE WOULD TOLERATE AUGMENTIN BETTER. RETURN PRECAUTIONS DISCUSSED WITH THE PATIENT. Source: Patient - Personal History LMP (Females 10-55): Now Current Tetanus/Diphtheria Vaccine: Yes Current Tetanus Diphtheria and Acellular Pertussis (TDAP): Yes - Medical/Surgical History Hx Asthma: No Hx Chronic Respiratory Disease: No Hx Diabetes: No Hx Cardiac Disease: No Hx Renal Disease: No Hx Cirrhosis: No Hx Alcoholism: No Hx HIV/AIDS: No Hx Splenectomy or Spleen Trauma: No Other PMH: tubal ligation, left foot surgery - Social History Smoking Status: Light smoker Constitutional: Initial Vital Signs Temperature (C) 36.9 C 07/29/18 20:27 Heart Rate 80 07/29/18 20:27 Respiratory Rate 18 07/29/18 20:27 Blood Pressure 160/98 H 07/29/18 20:27 O2 Sat (%) 98 07/29/18 20:27 O2 Delivery Mode Room Air Allergies/Adverse Reactions: codeine Allergy (Verified 07/29/18 20:29) Home Medications: Medication Instructions Recorded Fluconazole 150 mg PO DAILY #2 tablet 06/02/18 Metronidazole 500 mg PO BID 7 Days tablet 06/09/18 Amoxicillin/Clavulanate Pot 875 mg PO BID #14 tab 07/29/18 [Augmentin 875 MG TAB (*)] Clindamycin 150 mg PO Q8 #21 cap 07/29/18 Clindamycin HCl [Clindamycin] 300 mg PO TID #30 cap 07/29/18 Ibuprofen [Motrin (*)] 800 mg PO Q6-8PRN #10 tab 07/29/18 Medical Decision Making - Data Points Medications Given: Discontinued Medications Hydrocodone Bitart/Acetaminophen ([place] 5/325) 1 tab PO EDNOW ONE Stop: 07/29/18 21:30 Last Admin: 07/29/18 21:34 Dose: 1 tab Amoxicillin/Clavulanate Potassium (Augmentin 875mg) 875 mg PO EDNOW ONE PRN Reason: Protocol Stop: 07/29/18 21:38 Last Admin: 07/29/18 21:39 Dose: Not Given Clindamycin (Clindamycin) 300 mg PO EDNOW ONE PRN Reason: Protocol Stop: 07/29/18 21:30 Last Admin: 07/29/18 21:33 Dose: 300 mg Departure - Departure Disposition: Home, Routine, Self-Care Clinical Impression: Dental decay, Dental infection Instructions: Toothache (ED) Additional Instructions: 1. Antibiotics as prescribed 2. Follow-up with dentistry 3. Return emergency room if worsening symptoms Referrals: NONE *PRIMARY CARE P,. [Primary Care Provider] - As per Instructions [facility] [Outside] - As per Instructions [facility] [Outside] - As per Instructions [facility] [Outside] - As per Instructions Dental [facility] [Outside] - As per Instructions [facility] [Outside] - As per Instructions Prescriptions: Amoxicillin/Clavulanate Pot [Augmentin 875 MG TAB (*)] 875 mg PO BID #14 tab Clindamycin 150 mg PO Q8 #21 cap Clindamycin HCl [Clindamycin] 300 mg PO TID #30 cap Ibuprofen [Motrin (*)] 800 mg PO Q6-8PRN #10 tab
[2018-07-29] MEDS ORDERED: CLINDAMYCIN 150 MG CAP PO ONE (21:29)
[2018-07-29] MEDS ORDERED: HYDROCODONE/APAP 5/325 TAB PO ONE (21:29)
[2018-07-29] MEDS ORDERED: AMOXICILLIN/CLAVULANATE POT 875/125 MG TAB PO ONE (21:37)
[2018-07-29 21:46] VITALS: BP 159/70
== END 2018-07-29 21:46 | disposition home or self-care (01) ==
DX: K02.9 Dental caries, unspecified (principal); K04.7 Periapical abscess without sinus

== ENCOUNTER 2018-12-07 15:41 | Emergency (ER) | payer MEDICAID | END 2018-12-07 16:21 | disposition home or self-care (01) ==

== ENCOUNTER 2018-12-14 21:18 | Emergency (ER) | payer MEDICAID | END 2018-12-14 22:10 | disposition home or self-care (01) ==